=== PATIENT | male | born 1960 | race Asian ===

== ENCOUNTER 2019-03-01 12:21 | Day surgery (SDC) | payer BC ==
[~2019-03-01] VITALS: Ht 177.8 cm; Wt 101.3 kg
[~2019-03-01 12:21] MED LIST: AMLO5TAB4 PO; GEMF600T PO; HYDR25TA6 PO; RANI150T5 PO
[2019-03-01 15:04] VITALS: Ht 177.8 cm; Wt 101.3 kg
[2019-03-01 15:10] VITALS: BP 165/79; PULSE 87; RESP 19
[2019-03-01] MEDS ORDERED: LIDOCAINE 2% (SDV) 5 ML INJ ONE (15:15)
[2019-03-01] MEDS ORDERED: PROPOFOL 20 ML ONE (15:15)
[2019-03-01] MEDS ORDERED: MIDAZOLAM 1 MG/ML 2 ML INJ ONE (15:15)
[2019-03-01] MEDS ORDERED: FENTAnyl 50 MCG/ML VIAL ONE (15:16)
[2019-03-01] MEDS ORDERED: ETOMIDATE 20 MG INJ ONE (15:16)
[2019-03-01] MEDS ORDERED: ATOR40TA68 PO (15:17)
[2019-03-01] MEDS ORDERED: MONT4GRA2 PO (15:18)
[2019-03-01] MEDS ORDERED: TURMERIC (15:18)
[2019-03-01] MEDS ORDERED: EYE VITE (15:18)
[2019-03-01] MEDS ORDERED: FENO200 PO (15:18)
[2019-03-01] MEDS ORDERED: OMEG-135 PO (15:18)
[2019-03-01] MEDS ORDERED: METOPROLOL (15:18)
--- NOTE | 2019-03-01 15:19 | PREAC ---
Date/Time of Note Date/Time of Note DATE: 03/01/19 TIME: 15:17 Anesthesia Eval and Record Evaluation Time Pre-Procedure Interview DATE: 03/01/19 TIME: 15:17 Age 58 Sex male NPO: 8 hrs Preoperative diagnosis screening Planned procedure egd colonoscopy Past Medical History Past Medical History: Includes Cardio: HTN Endo: Diabetes Pulm: Smoking Hx GI: Obesity Surgery & Anesthesia Issues No known issue Meds Anticoagulation: No Beta Moni within 24 hr: No Reason Beta Moni not given: Pt. not on B-Moni Reported Medications Atorvastatin* (Atorvastatin*) 40 Mg Tablet, 20 MG PO QHS, #30 TAB 03/01/19 Ranitidine Hcl* (Ranitidine Hcl*) 150 Mg Tablet, 150 MG PO Q12, TAB 08/28/14 Hydrochlorothiazide* (Hydrochlorothiazide*) 25 Mg Tab, 25 MG PO DAILY, TAB 08/28/14 Gemfibrozil* (Lopid*) 600 Mg Tablet, 600 MG PO BID, TAB 08/28/14 Amlodipine Besylate* (Norvasc*) 5 Mg Tablet, 5 MG PO DAILY, TAB 08/28/14 Meds reviewed: Yes Allergies Coded Allergies: No Known Drug Allergies (Verified Allergy, Unknown, 03/01/19) Allergies Reviewed: Yes Labs/Studies Labs Reviewed: Reviewed by anesthesiologist test: N/A Pre-procedure Exam Airway: Adequate mouth opening, Adequate thyromental dist Mallampati: Mallampati III Teeth: Normal Lung: Normal Heart: Normal ASA Physical Status ASA physical status: 3 Emergency: None Pre-operative Attestations Prior to commencing anesthesia and surgery, the patient was re-evaluated, there was verification of: *The patient's identity *The results of appropriate recent lab work and preoperative vital signs *The above evaluation not changing prior to induction *Anesthetic plan, risk benefits, alternative and complications discussed with patient/family; questions answered; patient/family understands, accepts and wishes to proceed. YARITZA LESLIE DO Mar 01, 2019 15:18
--- NOTE | 2019-03-01 15:51 | PAC ---
Date/Time of Note Date/Time of Note DATE: 03/01/19 TIME: 15:51 Post-Anesthesia Notes Post-Anesthesia Note Last documented vital signs 103/50 63 98 18 Activity: WNL Respiratory function: WNL Cardiovascular function: WNL Mental status: Baseline Pain reasonably controlled: Yes Hydration appropriate: Yes Nausea/Vomiting absent: Yes YARITZA LESLIE DO Mar 01, 2019 15:51
[2019-03-01 16:25] VITALS: BP 157/75; RESP 20
== END 2019-03-01 17:44 | disposition home or self-care (01) ==
LOC: GIL 12:21
PROVIDERS: ATTEND Internal Medicine Gastroenterology
DX: Z12.11 Encounter for screening for malignant neoplasm of colon (principal); K64.8 Other hemorrhoids; K29.50 Unspecified chronic gastritis without bleeding; K22.8 Other specified diseases of esophagus; I10 Essential (primary) hypertension; E11.9 Type 2 diabetes mellitus without complications
CPT/HCPCS: 43239; 45378; 82962; 88305; 88312; 88313; J2250; J3010; Z7610